=== PATIENT | female | born 1970 | race Caucasian/White ===

== ENCOUNTER 2020-02-04 12:11 | Emergency (ER) | payer BC, SELFPAY ==
[2020-02-04 12:22] VITALS: BP 146/78; PULSE 65; PULSE 66; RESP 22; TEMP 36.8; O2SAT 98; O2SAT 99; BMI 30.8
--- NOTE | 2020-02-04 12:28 | ECG_ITS ---
Test Reason : SOB Blood Pressure : / mmHG Vent. Rate : 062 BPM Atrial Rate : 062 BPM P-R Int : 166 ms QRS Dur : 072 ms QT Int : 396 ms P-R-T Axes : 036 006 008 degrees QTc Int : 401 ms Normal sinus rhythm Low voltage QRS Nonspecific T wave abnormality Abnormal ECG No previous ECGs available Referred By: Eloise Martin Electronically Signed By:KING DUMONT MD
--- NOTE | 2020-02-04 12:28 | XR_ITS ---
EXAMINATION: XR CHEST CLINICAL INFORMATION: Shortness of breath COMPARISON: Previous chest x-ray October 2018 TECHNIQUE: Frontal view of the chest was obtained. FINDINGS: The cardiac and mediastinal contours are stable. The lung volumes are low. There are increased markings at the right lung base questionable for small infiltrate. The lungs are otherwise clear. There is no pleural effusion. Bony structures are unremarkable. XR/XR chest 1V IMPRESSION: Question small infiltrate at the right lung base.
--- NOTE | 2020-02-04 12:32 | ED.SOB ---
HPI - SOB/Dyspnea General Chief Complaint: Dyspnea Stated Complaint: SOB,NO FEVER,NO COUGH Time Seen by Provider: 02/04/20 12:17 Source: patient Mode of arrival: EMS Limitations: no limitations History of Present Illness HPI Narrative: patient comes to emergency room complaining of shortness of breath since yesterday. Patient states she was recently diagnosed with COPD, patient stop smoking a few months ago. Patient took couple of doses of prednisone and Lasix that her PCP prescribed for her ankle swelling. patient denies chest pain, no coughing, no fever. Related Data Previous Rx's Medication Instructions Recorded levofloxacin 500 mg PO DAILY #6 tab 02/04/20 prednisone 50 mg PO DAILY #5 tab 02/04/20 Allergies Allergy/AdvReac Type Severity Reaction Status Date / Time Penicillins [PENICILLINS] Allergy Severe RASH Verified 02/04/20 12:16 Review of Systems Review of Systems: Constitutional : No Weight loss, No Fever, No Chills, No Night Sweats, No Fatigue, No Malaise ENT/Mouth : No Hearing loss, No Ear Pain, No Nasal Congestion, No Sinus Pain, No Hoarseness, No sore throat, No Rhinorrhea, No Swallowing Difficulty Eyes: No Eye Pain, No Swelling, No Redness, No Foreign Body, No Discharge, No Vision Changes Cardiovascular : No Chest Pain, Moderate chest tightness with breathing, moderate SOB, recent episodes of bilateral lower extremity edema Respiratory : No Cough, No Sputum, mild wheezing since yesterday Gastrointestinal : No Nausea, No Vomiting, No Diarrhea, No Constipation, No abdominal Pain, No Hematochezia, No Melena Genitourinary : no irregular bleeding, No Dysuria, No Urinary Frequency, No Hematuria, No Urinary Incontinence, No Urgency, No Flank Pain, No Urinary Flow Changes, No Hesitancy Musculoskeletal : No joint pain, No Myalgias, No Joint Swelling Skin : No Skin Lesions, No rash Neuro : No Weakness, No Numbness, No Paresthesias, No Loss of Consciousness, No Dizziness, No Headache Psych : No Anxiety/Panic, No Depression, No SI/HI/AH/VH, No Social Issues, Heme/Lymph: No Bruising, No Bleeding,No Lymphadenopathy Endocrine : No Polyuria, No Polydipsia, No Temperature Intolerance PMFSH Past Medical History Medical History Anxiety COPD (chronic obstructive pulmonary disease) Surgical History History of appendectomy Social History Social History Alcohol intake: unknown Smoking Status: Former smoker Smoked in Last 30 Days: No Use of substances other than those prescribed or required for medical reasons: No Advance Directives: No Advance Directives Information Provided: No Physical Exam Vital Signs: Vital Signs: Vital Signs Temp Pulse Resp BP Pulse Ox 02/04/20 14:05 55 18 126/62 97 02/04/20 12:22 98.2 F 65 22 H 146/78 H 98 Body Mass Index 30.8 Appearance: Alert. Oriented X3. No acute distress. Eyes: Pupils equal, round and reactive to light. ENT: Pharynx normal. Neck: Normal inspection. Neck supple. No lymph nodes noted. No crepitus CVS: Normal heart rate and rhythm. Pulses normal. Normal S1 and S2 Respiratory: No respiratory distress. Breath sounds normal. No Wheezing. No rales Abdomen: Soft and nontender. No rigidity. No distention. good BS x4 Skin: Skin warm and dry. Normal skin color. Normal skin turgor. Extremities: No lower extremity edema. No lower extremity edema. No Lacerations. No Rash Neuro: Oriented X 3. No motor deficit. No sensory deficit. Moving all extermities. No slurred speech. Course Course Course Narrative: I discussed the labs and imaging with the patient, patient does have a right lower lobe pneumonia, patient's white blood cell count 11.8, patient is on prednisone chronically, likely causing the white blood cell count to be elevated. Patient's troponin negative, rapid COVID test negative. Lactic acid 1.4, at this time sepsis is not suspected patient is calm, oxygen saturation remains at 98% on room air, talking in full sentences. MDM - SOB/Dyspnea Lab Data Result diagrams: 02/04/20 12:45 02/04/20 12:46 Labs: Lab Results 02/04/20 02/04/20 02/04/20 Range/Units 12:45 12:45 12:45 WBC 11.8 H (4.8-10.8) X10*3/uL RBC 4.54 (4.20-5.50) X10*6/uL Hgb 13.1 (12.0-16.0) g/dl Hct 39.5 (37-47) % MCV 87.0 (80-98) fL MCH 28.9 (27.0-33.0) pg MCHC 33.2 (31.0-35.0) g/dl RDW 12.5 (11.0-16.0) % Plt Count 348 (160-400) X10*3/uL MPV 9.3 L (9.4-12.3) fL Immature Gran % (Auto) 0.4 (0.0-0.4) % Neut % (Auto) 89.2 H (45-73) % Lymph % (Auto) 9.1 L (20-40) % Jack % (Auto) 1.1 L (2-11) % Eos % (Auto) 0.0 (0-4) % Baso % (Auto) 0.2 (0-2) % Lymph # (Auto) 1.1 L (1.2-4.9) X10*3/uL Jack # (Auto) 0.1 (0.1-1.2) X10*3/uL Eos # (Auto) 0.0 (0.0-0.4) X10*3/uL Baso # (Auto) 0.0 (0.0-0.2) X10*3/uL Abs Immat Gran (auto) 0.05 H (0.00-0.03) X10*3/uL Absolute Neuts (auto) 10.5 H (2.0-8.3) X10*3/uL Absolute Nucleated RBC 0.000 (0.0-0.012) X10*3/uL Nucleated RBC % (auto) 0.0 (0.0-0.2) /100WBC D-Dimer 246 NG/ML Sodium (135-145) mmol/L Potassium (3.3-5.1) mmol/l Chloride (96-108) mmol/L Carbon Dioxide (22-29) mmol/L Anion Gap (12-20) BUN (9-16) mg/dL Creatinine (0.5-1.4) mg/dL Estim Creat Clear Calc Estimated GFR Random Glucose (60-115) mg/dL Lactic Acid (0.5-2.0) mmol/L Calcium (8.4-10.2) mg/dL Troponin I High Sens < 3.5 (<3.5-17.0) ng/L B-Natriuretic Peptide 50 (<100) pg/mL Coronavirus (PCR) (Negative) 02/04/20 02/04/20 02/04/20 Range/Units 12:46 14:07 14:52 WBC (4.8-10.8) X10*3/uL RBC (4.20-5.50) X10*6/uL Hgb (12.0-16.0) g/dl Hct (37-47) % MCV (80-98) fL MCH (27.0-33.0) pg MCHC (31.0-35.0) g/dl RDW (11.0-16.0) % Plt Count (160-400) X10*3/uL MPV (9.4-12.3) fL Immature Gran % (Auto) (0.0-0.4) % Neut % (Auto) (45-73) % Lymph % (Auto) (20-40) % Jack % (Auto) (2-11) % Eos % (Auto) (0-4) % Baso % (Auto) (0-2) % Lymph # (Auto) (1.2-4.9) X10*3/uL Jack # (Auto) (0.1-1.2) X10*3/uL Eos # (Auto) (0.0-0.4) X10*3/uL Baso # (Auto) (0.0-0.2) X10*3/uL Abs Immat Gran (auto) (0.00-0.03) X10*3/uL Absolute Neuts (auto) (2.0-8.3) X10*3/uL Absolute Nucleated RBC (0.0-0.012) X10*3/uL Nucleated RBC % (auto) (0.0-0.2) /100WBC D-Dimer NG/ML Sodium 136 (135-145) mmol/L Potassium 4.4 (3.3-5.1) mmol/l Chloride 106 (96-108) mmol/L Carbon Dioxide 18 L (22-29) mmol/L Anion Gap 16 (12-20) BUN 17 H (9-16) mg/dL Creatinine 0.69 (0.5-1.4) mg/dL Estim Creat Clear Calc 100.3 Estimated GFR > 60 Random Glucose 129 H (60-115) mg/dL Lactic Acid 1.4 (0.5-2.0) mmol/L Calcium 9.7 (8.4-10.2) mg/dL Troponin I High Sens (<3.5-17.0) ng/L B-Natriuretic Peptide (<100) pg/mL Coronavirus (PCR) NEGATIVE (Negative) ECG Data Attestation: I personally reviewed and interpreted this ECG as follows: ( sinus rhythm, heart rate 62, QTC 401, no ST segment elevations or depressions, nonspecific T-wave inversions in lead 3) Discharge Plan Discharge Clinical Impression: Pneumonia Qualifiers: Pneumonia type: due to unspecified organism Laterality: right Lung location: lower lobe of lung Qualified Code(s): J18.9 - Pneumonia, unspecified organism Patient Disposition: Home, Self-Care Instructions: Community Acquired Pneumonia (ED) Additional Instructions: pneumonia pneumonia if you have any shortness of breath, fever, worsening symptoms, please return to the emergency room. Please follow-up with your primary care physician tomorrow. If you have any worsening or new symptoms, please return to the emergency room or call 911 Prescriptions: New levofloxacin 500 mg tablet 500 mg PO DAILY Qty: 6 RF: 0 prednisone 50 mg tablet 50 mg PO DAILY Qty: 5 RF: 0 Stand Alone Forms: Work/School Release
[2020-02-04 12:52] LABS: MANUAL DIFF FLAG NO
[2020-02-04 12:57] LABS: Basophils Percent Auto 0.2 % (0-2); Hematocrit 39.5 % (37-47); Hemoglobin 13.1 g/dl (12.0-16.0); Imm Gran Abs Auto 0.05 X10*3/uL (0.00-0.03); Imm Gran Pct Auto 0.4 % (0.0-0.4); Lymphocytes Absolute Auto 1.1 X10*3/uL (1.2-4.9); Lymphocytes Percent Auto 9.1 % (20-40); Mean Corpuscular HGB Conc 33.2 g/dl (31.0-35.0); Mean Corpuscular Hemoglobin 28.9 pg (27.0-33.0); Mean Platelet Volume 9.3 fL (9.4-12.3); Monocytes Absolute Auto 0.1 X10*3/uL (0.1-1.2); Monocytes Percent Auto 1.1 % (2-11); Neutrophils Absolute Auto 10.5 X10*3/uL (2.0-8.3); Neutrophils Percent Auto 89.2 % (45-73); Platelet Count 348 X10*3/uL (160-400); Red Blood Count 4.54 X10*6/uL (4.20-5.50); Red Cell Distribution Width 12.5 % (11.0-16.0); White Blood Count 11.8 X10*3/uL (4.8-10.8)
[2020-02-04 13:15] LABS: D Dimer 246 NG/ML
[2020-02-04 13:19] LABS: Anion Gap 16 (12-20); Blood Urea Nitrogen 17 mg/dL (9-16); Calcium 9.7 mg/dL (8.4-10.2); Carbon Dioxide 18 mmol/L (22-29); Chloride 106 mmol/L (96-108); Creatinine Clr Calc Pharmacy 100.3; Estimated Glomerular Filt Rate > 60; Glucose Random 129 mg/dL (60-115); Potassium 4.4 mmol/l (3.3-5.1); Sodium 136 mmol/L (135-145)
[2020-02-04 13:24] LABS: B Type Natriuretic Peptide 50 pg/mL (<100); Troponin-I High Sensitivity < 3.5 ng/L (<3.5-17.0)
[2020-02-04 14:05] VITALS: BP 126/62; PULSE 55; RESP 18; O2SAT 97
[2020-02-04] MEDS: levoFLOXacin 500 MG TABLET PO (14:50)
[2020-02-04 15:14] LABS: SARS COV2 PCR INHOUSE NEGATIVE (Negative)
[2020-02-04 15:20] LABS: Lactic Acid 1.4 mmol/L (0.5-2.0)
== END 2020-02-04 17:00 | disposition home or self-care (01) ==
PROVIDERS: Emergency Provider Emergency Medicine; PCP Internal Medicine
DX: J18.9 Pneumonia, unspecified organism (principal); Z20.828 Contact with and (suspected) exposure to other viral communicable diseases; Z87.891 Personal history of nicotine dependence
CPT/HCPCS: 36415; 71045; 80048; 83605; 83880; 84484; 85025; 85379; 87040; 87635; 93005; 99283; 99284

== ENCOUNTER 2024-07-01 15:11 | Emergency (ER) | payer BC, SELFPAY ==
--- NOTE | ~2024-07-01 | XR_ITS ---
CLINICAL HISTORY: pain 3 views lumbar spine Comparison: None Findings: 4 films were obtained. Straightening of the normal lordosis is either due to muscle spasm or positioning. There is satisfactory alignment of the vertebral bodies. No acute fractures or dislocation. No significant vertebral body compression deformity. There is mild L4-5 and L5-S1 disc space narrowing. There are mild facet degenerative changes. Nonremoved jewelry artifact projects over the right side of L3 and L4. IMPRESSION: No acute findings. Mild degenerative changes. This document has been electronically signed by: Arcelia Browne DO on 07/01/2024 17:08:55
[2024-07-01 15:53] VITALS: BP 120/63; PULSE 68; RESP 18; TEMP 36.7; O2SAT 98; BMI 24.0
--- NOTE | 2024-07-01 15:54 | ED.GENADULT ---
HPI - General Adult General Chief complaint: Back Pain/Injury Stated complaint: severe lower back pain Time Seen by Provider: 07/01/24 22:32 Source: patient Limitations: no limitations History of Present Illness HPI narrative: The patient is a 53-year-old female with past medical history of COPD, HSV, hyperlipidemia who presents emergency department for evaluation of back pain. Reports acute onset at approximately 10:00 this morning right lower back pain radiating down the entirety of her leg posteriorly. She states that onset was while she was walking around at home. She denies any precipitating injury or fall, denies any history of similar pain in the past. Pain has been persistent throughout the day exacerbates with ambulation and movement. She trialed acetaminophen, naproxen, and a Lidoderm patch at home with only minimal improvement. Denies fevers, chills, burning with micturition, urinary frequency/urgency/hesitancy, bladder or bowel dysfunction, numbness or tingling of the perineum or bilateral legs. Denies any recent surgical procedures, any known immune compromising conditions, personal history of cancer, or IV drug usage. Related Data Previous Rx's ?Medication ?Instructions ?Recorded levofloxacin 500 mg tablet 500 mg PO DAILY #6 tabs 02/04/20 prednisone 50 mg tablet 50 mg PO DAILY #5 tabs 02/04/20 cyclobenzaprine 5 mg tablet 5 mg PO TID PRN muscle spasm #14 07/01/24 tabs lidocaine 5 % topical patch 1 patch topical DAILY #15 ea 07/01/24 Allergies Allergy/AdvReac Type Severity Reaction Status Date / Time Penicillins [PENICILLINS] Allergy Severe RASH Verified 07/01/24 15:54 Review of Systems Review of Systems: Yes all other systems are reviewed and are negative PMFSH Past Medical History Attestation statement: The following information was validated with the patient. Source: old records reviewed Medical History COPD (chronic obstructive pulmonary disease) Anxiety Surgical History History of appendectomy Social History Social History Alcohol intake: unknown Advance Directives: No Advance Directives Information Provided: Yes Physical Exam ED Vital Signs: Vital Signs - 24 hr 07/01/24 15:53 Temperature 98.1 F Pulse Rate 68 Respiratory Rate 18 Blood Pressure 120/63 Pulse Oximetry 98 Oxygen Delivery Method Room Air BMI result Body Mass Index 24.0 Appearance: Alert.?Oriented to person, place and time. No acute distress.?Normal affect. Eyes: Pupils equal, round and reactive to light.? ENT: Pharynx normal.?? Neck: Normal inspection.? Neck supple.?? CVS: Heart sounds normal. Normal heart rate and rhythm.? Pulses normal; bilateral radial pulses 2+, bilateral posterior tibial/dorsalis pedis pulses 2+.? Respiratory: No respiratory distress.? Lung sounds clear to auscultation bilaterally?? Abdomen: Soft and non-tender. Normoactive bowel sounds. No pulsatile mass.?? Skin: Skin warm and dry.? Normal skin color.? Normal skin turgor.?? Extremities: No lower extremity edema.? No calf ttp? Back: + mild right paraspinal muscular tenderness from lumbar region to coccyx. No CVA tenderness. No midline spinal tenderness, step-off's, or deformity. Full ROM intact in bilateral lower extremities. Straight leg test positive on right; Straight leg test negative on left. No rashes, lesions, areas of induration or fluctuance, or signs of infection noted., Neuro: Moves all extremities spontaneously. 5/5 strength in hip extension/flexion, abduction, adduction. Sensation to light touch intact bilaterally. Patellar and Achilles reflex 2+ bilaterally. No ataxia, gait normal and steady.. No focal neuro deficits. Course Course Course Narrative: This is a rapid medical exam performed by Dodie Ware PA-C. The patient is a 53-year-old female who presents with the acute onset right-sided low back pain. Pain radiates down the right lower extremity with paresthesias that time. Patient denies urinary retention or bowel incontinence. She is walking with an antalgic gait. We will be screening basic labs obtaining a lumbar film. The patient is stable and can return to the waiting room pending her full medical assessment. Medical Decision Making Medical Decision Making MDM Narrative: patient is a 53-year-old female with past medical history of COPD, HSV, hyperlipidemia who presents emergency department for evaluation of acute onset lower back pain radiating to the right lower extremity as per HPI onset this morning without precipitating injury. On evaluation she has notable right-sided paraspinal lumbar muscle tenderness on palpation palpable spasming. An XR was obtained prior to my assumption of care of the lumbar spine there is no acute fracture subluxation. Serum labs were obtained as well, CBC overall unremarkable, no ARNALDO, unremarkable LFTs. suspect Pain is most consistent with muscular pain, although cannot completely exclude herniated disc however given atraumatic nature of the lower suspicion for such.. On neurological exam there are no deficits. Exam findings not consistent with cauda equina syndrome. No recent fevers, unintentional weight loss, history of IVDA, high-risk past medical history, immunosuppression, recent surgery or lumbar puncture to suggest spinal infection, epidural abscess, malignancy. Not consistent with AAA or dissection. No genitourinary symptoms, afebrile, no CVA tenderness, unlikely urinary tract infection, pyelonephritis, renal colic. No history of nephrolithiasis/ureteral calculi. Plan for discharge home with Discussion of conservative treatment, in addition to a muscle relaxant, and follow-up with primary care provider, and patient agreed with plan. Differential Diagnosis Differential Diagnoses: The differential diagnosis associated with the presentation includes ( see narrative above) Admission/Observation Consideration of admission/observation: Escalation of care including admission/observation considered ( see narrative above) Lab Data MDM Lab Attestation statement: I reviewed the patient's lab results. ( see narrative above) 07/01/24 17:41 07/01/24 17:41 Labs: Lab Results 07/01/24 Range/Units 17:41 WBC 12.8 H (4.8-10.8) X10*3/uL RBC 4.35 (4.20-5.50) X10*6/uL Hgb 13.9 (12.0-16.0) g/dl Hct 41.4 (37.0-47.0) % MCV 95.2 (80.0-98.0) fL MCH 32.0 (27.0-33.0) pg MCHC 33.6 (31.0-35.0) g/dl RDW 12.9 (11.0-16.0) % Plt Count 347 (160-400) X10*3/uL MPV 9.3 L (9.4-12.3) fL Immature Gran % (Auto) 0.5 H (0.0-0.4) % Neut % (Auto) 59.9 (45-73) % Lymph % (Auto) 29.8 (20-40) % Whiteside % (Auto) 5.6 (2-11) % Eos % (Auto) 3.7 (0-4) % Baso % (Auto) 0.5 (0-2) % Lymph # (Auto) 3.8 (1.2-4.9) X10*3/uL Whiteside # (Auto) 0.7 (0.1-1.2) X10*3/uL Eos # (Auto) 0.5 H (0.0-0.4) X10*3/uL Baso # (Auto) 0.1 (0.0-0.2) X10*3/uL Abs Immat Gran (auto) 0.06 H (0.00-0.03) X10*3/uL Absolute Neuts (auto) 7.7 (2.0-8.3) x10*3/uL Absolute Nucleated RBC 0.000 (0.0-0.012) X10*3/uL Nucleated RBC % (auto) 0.0 (0.0-0.2) /100WBC Sodium 139 (135-145) mmol/L Potassium 4.1 (3.3-5.1) mmol/L Chloride 108 (96-108) mmol/L Carbon Dioxide 21 L (22-29) mmol/L Anion Gap 14 (12-20) BUN 18 H (9-16) mg/dL Creatinine 0.74 (0.5-1.4) mg/dL Estim Creat Clear Calc 77.6 Estimated GFR > 60 Random Glucose 90 (60-115) mg/dL Calcium 9.2 (8.4-10.2) mg/dL Magnesium 2.3 (1.6-2.6) mg/dL Total Bilirubin 0.2 (0.0-1.0) mg/dL AST 18 (5-31) U/L ALT 20 (0-31) U/L Alkaline Phosphatase 68 (39-117) U/L Total Protein 7.4 (6.5-8.0) g/dL Albumin 4.3 (3.5-5.0) g/dL Independent Interpretation I performed an independent interpretation of an: Plain X-Ray Radiology Impression Discussion of test interpretation with radiology: I have reviewed the radiologist's reading. Radiologist Impression: XR 3 views lumbar spine Comparison: None Findings: 4 films were obtained. Straightening of the normal lordosis is either due to muscle spasm or positioning. There is satisfactory alignment of the vertebral bodies. No acute fractures or dislocation. No significant vertebral body compression deformity. There is mild L4-5 and L5-S1 disc space narrowing. There are mild facet degenerative changes. Nonremoved jewelry artifact projects over the right side of L3 and L4. IMPRESSION: No acute findings. Mild degenerative changes. Independent Historian Clinical information obtained from an independent historian. History obtained from or confirmed by: Parent Prescription Management I considered prescription management with: Pain Medication Discharge Plan Discharge Clinical Impression: Lumbar radiculopathy Patient Disposition: Home, Self-Care Instructions: Acute Low Back Pain (ED), Lumbar Radiculopathy (ED), Lower Back Exercises (ED) Additional Instructions: as discussed, please rest over the next week with any persistent pain that you may be experiencing. After 1 week you may follow the instructions regarding lower back exercises. Additionally I advised that you follow-up with your primary care doctor for pain that is persisting past this week. You can take ibuprofen 200 mg, 3 tablets (600mg) every 6-8 hours as needed for pain, in addition to Tylenol 500 mg, 2 tablets (1,000mg) every 4-6 hours as needed for pain, but not to exceed 3 doses daily (3,000mg).? You may apply ice/heat for 10-15 minutes 4-6 times daily. Lidoderm patch can be applied to the area of pain on the back, left on for total of 12 hours and remove for a 12 hour period to prevent any skin irritation. For pain not alleviated by the above I have sent a prescription for muscle relaxant to your pharmacy cyclobenzaprine/Flexeril. This medication may make you drowsy. You should not drive, drink alcohol, or work while taking this medication. Prescriptions: New cyclobenzaprine 5 mg tablet 5 mg PO TID PRN (Reason: muscle spasm) Qty: 14 0RF lidocaine 5 % adhesive patch,medicated 1 patch topical DAILY Qty: 15 0RF Rx Instructions: leave on most painful area for up to 12 hrs No Action levofloxacin 500 mg tablet 500 mg PO DAILY Qty: 6 0RF prednisone 50 mg tablet 50 mg PO DAILY Qty: 5 0RF Referrals: Cesar Humphreys MD [Primary Care Provider] - Print Language: [place]
[2024-07-01 17:45] LABS: MANUAL DIFF FLAG NO
[2024-07-01 18:04] LABS: Alanine Aminotransferase 20 U/L (0-31); Albumin Level 4.3 g/dL (3.5-5.0); Alkaline Phosphatase 68 U/L (39-117); Anion Gap 14 (12-20); Aspartate Amino Transferase 18 U/L (5-31); Bilirubin Total 0.2 mg/dL (0.0-1.0); Blood Urea Nitrogen 18 mg/dL (9-16); Calcium 9.2 mg/dL (8.4-10.2); Carbon Dioxide 21 mmol/L (22-29); Chloride 108 mmol/L (96-108); Creatinine Clr Calc Pharmacy 77.6; Estimated Glomerular Filt Rate > 60; Glucose Random 90 mg/dL (60-115); Magnesium 2.3 mg/dL (1.6-2.6); Potassium 4.1 mmol/L (3.3-5.1); Sodium 139 mmol/L (135-145); Total Protein 7.4 g/dL (6.5-8.0)
[2024-07-01 18:07] LABS: Basophils Absolute Auto 0.1 X10*3/uL (0.0-0.2); Basophils Percent Auto 0.5 % (0-2); Eosinophils Absolute Auto 0.5 X10*3/uL (0.0-0.4); Eosinophils Percent Auto 3.7 % (0-4); Hematocrit 41.4 % (37.0-47.0); Hemoglobin 13.9 g/dl (12.0-16.0); Imm Gran Abs Auto 0.06 X10*3/uL (0.00-0.03); Imm Gran Pct Auto 0.5 % (0.0-0.4); Lymphocytes Absolute Auto 3.8 X10*3/uL (1.2-4.9); Lymphocytes Percent Auto 29.8 % (20-40); Mean Corpuscular HGB Conc 33.6 g/dl (31.0-35.0); Mean Corpuscular Volume 95.2 fL (80.0-98.0); Mean Platelet Volume 9.3 fL (9.4-12.3); Monocytes Absolute Auto 0.7 X10*3/uL (0.1-1.2); Monocytes Percent Auto 5.6 % (2-11); Neutrophils Absolute Auto 7.7 x10*3/uL (2.0-8.3); Neutrophils Percent Auto 59.9 % (45-73); Platelet Count 347 X10*3/uL (160-400); Red Blood Count 4.35 X10*6/uL (4.20-5.50); Red Cell Distribution Width 12.9 % (11.0-16.0); White Blood Count 12.8 X10*3/uL (4.8-10.8)
[2024-07-01] MEDS: Cyclobenzaprine HCl 5 MG TABLET PO (23:10)
[2024-07-01 23:12] VITALS: BP 120/63; PULSE 68; RESP 18; TEMP 36.7; O2SAT 98
== END 2024-07-01 23:13 | disposition home or self-care (01) ==
PROVIDERS: Physician Assistant Medical; Emergency Provider Emergency Medicine; PCP Internal Medicine
DX: M54.16 Radiculopathy, lumbar region (principal); M54.50 Low back pain, unspecified; J44.9 Chronic obstructive pulmonary disease, unspecified; M79.605 Pain in left leg; M79.604 Pain in right leg
CPT/HCPCS: 36415; 72100; 80053; 83735; 85025; 99283

== ENCOUNTER → 2024-07-01 15:53 | Outpatient (BNV) | payer BC, SELFPAY | PROVIDERS: PCP Internal Medicine; Visit Provider Radiology Diagnostic Radiology | DX: M54.50 Low back pain, unspecified (principal) | CPT/HCPCS: 72100 ==

== ENCOUNTER → 2024-09-24 13:16 | Outpatient (BNVA) | payer SELFPAY | PROVIDERS: PCP Internal Medicine | DX: Z11.1 Encounter for screening for respiratory tuberculosis (principal) ==

== ENCOUNTER 2025-02-18 16:27 | Emergency (ER) | payer MEDICAID, SELFPAY ==
--- NOTE | ~2025-02-18 | XR_ITS ---
CLINICAL HISTORY: pain, swelling 5th toe 3 view right foot Comparison: None provided Findings: Bones intact. No dislocations. No significant loss of joint space, osteophytes, or erosions. No ankle effusion. No radiopaque foreign body. IMPRESSION: 1. No acute findings. This document has been electronically signed by: Erick Tomas MD on 02/18/2025 18:23:31
[2025-02-18 16:41] VITALS: BP 125/63; PULSE 74; RESP 18; TEMP 36.4; O2SAT 97; BMI 22.7
--- NOTE | 2025-02-18 16:41 | ED.GENADULT ---
HPI - General Adult General Chief complaint: Extremity Injury, Lower Stated complaint: Swelling Of Limb Time Seen by Provider: 02/18/25 18:31 Source: patient, RN notes reviewed and old records reviewed Mode of arrival: ambulatory Limitations: no limitations History of Present Illness ED Provider: Carm[facility] narrative: Patient is a 54year old female presenting to the ED with complaint of pain, redness and swelling to R 5th toe. Can't recall any traumatic injury but is unsure. Recently got new shoes for work and has been wearing compression socks. MD complaint: toe pain Onset (ago): day(s) Related Data Previous Rx's ?Medication ?Instructions ?Recorded levofloxacin 500 mg tablet 500 mg PO DAILY #6 tabs 02/04/20 prednisone 50 mg tablet 50 mg PO DAILY #5 tabs 02/04/20 cyclobenzaprine 5 mg tablet 5 mg PO TID PRN muscle spasm #14 07/01/24 tabs lidocaine 5 % topical patch 1 patch topical DAILY #15 ea 07/01/24 doxycycline hyclate 100 mg capsule 100 mg PO BID #14 caps 02/18/25 Allergies Allergy/AdvReac Type Severity Reaction Status Date / Time Penicillins (PENICILLINS) Allergy Severe RASH Verified 07/01/24 15:54 tramadol Allergy Shortness Verified 02/18/25 16:45 of Breath Review of Systems Review of Systems: as per hpi Yes all other systems are reviewed and are negative Constitutional: Constitutional: Reports as per HPI [facility] Past Medical History Medical History COPD (chronic obstructive pulmonary disease) Anxiety Surgical History History of appendectomy Social History Social History Alcohol intake: unknown Physical Exam ED Vital Signs: Vital Signs - 24 hr 02/18/25 16:41 Temperature 97.5 F Pulse Rate 74 Respiratory Rate 18 Blood Pressure 125/63 Pulse Oximetry 97 Oxygen Delivery Method Room Air BMI result Body Mass Index 22.7 Vital signs have been reviewed and appear to be correct. Blood pressure normal. Heart rate normal. Respiratory rate normal. Temperature normal. Oxygen saturation normal. Const General: cooperative, healthy appearing and no acute distress Orientation/consciousness: oriented to person, oriented to place, oriented to time and patient oriented x3 Limitations: no limitations HENMT Head: Yes normocephalic and Yes atraumatic Ears: external ears normal General nose exam: Normal external nose present Face and sinus: Yes face symmetric Mouth: oropharynx normal and moist mucous membranes Throat: Yes uvula midline Eyes Pupils: Equal, round and reactive pupils present Neck Neck: Yes normal visual inspection and Yes supple Resp Effort & Inspection: normal respiratory effort and able to speak in complete sentences Auscultation: clear to auscultation bilaterally Cardio Rate: regular rate Rhythm: regular rhythm Heart sounds: S1 normal heart sound present and S2 normal heart sound present GI Palpation (GI): Soft to palpation and nontender Auscultation: normoactive bowel sounds General: Yes no CVA tenderness Back/Spine/Pelvis Back: no CVA tenderness Skin General skin exam: elasticity normal and turgor normal Neuro General: oriented to person, oriented to place, oriented to time, patient oriented x3, moves all extremities, no focal motor deficits and CN's II-XI intact bilaterally Cranial nerves: Yes Equal, round and reactive pupils present Cognition (Neuro): normal cognition Extrem General: Yes full ROM, Yes no pedal edema and Yes no calf tenderness Right lower extremity: foot Details: normal capillary refill, tenderness Location: of another digit Location: the 5th digit, toes with normal ROM, warmth Location: of another digit Location: the 5th digit, no edema, vascular exam Details: dorsalis pedis pulse present, posterior tibial pulse present and normal capillary refill and other (entire 5th toe erythematous) Psych Mental Status: mental status grossly normal Affect: normal affect Thought process: Normal thought process present Course Course Course Narrative: This is a rapid medical exam performed by Rebecca Herr NP: Additional HPI, ROS, PE not included below will be deferred to primary provider. Patient is a 54y/o F presenting to the ED with complaint of pain, redness and swelling to R 5th toe. Can't recall any traumatic injury but is unsure. Plan: xray Medical Decision Making Medical Decision Making [facility] Narrative: Patient is a 54y/o F presenting to the ED with complaint of pain, redness and swelling to R 5th toe. On exam patient is awake, A+Ox3, VS WNL, afebrile, normal neurological exam without focal deficits, physical exam findings as above. Given reported symptoms and physical exam findings, initial differential includes but is not limited to cellulitis, fracture. Do not suspect vascular compromise as sensation intact, cap refill <3 seconds. X-ray right foot notable for no acute fracture. My interpretation is in agreement with the radiologist's interpretation. Results discussed with patient and all questions answered. Will cover with doxycycline as patient has pcn allergy. Return precautions discussed. Advised patient to try different shoes/socks until symptoms resolve. Patient verbalized understanding of and agreement with plan. Differential Diagnosis Differential Diagnoses: The differential diagnosis associated with the presentation includes as per [facility] Admission/Observation Consideration of admission/observation: Escalation of care including admission/observation considered Patient would have been admitted to the hospital and transferred to appropriate facility had their clinical presentation warranted hospital admission. Independent Interpretation I performed an independent interpretation of an: Plain X-Ray Interpretation: No acute fracture right 5th toe Radiology Impression Discussion of test interpretation with radiology: I have reviewed the radiologist's reading. Radiologist Impression: 3 view right foot Comparison: None provided Findings: Bones intact. No dislocations. No significant loss of joint space, osteophytes, or erosions. No ankle effusion. No radiopaque foreign body. IMPRESSION: 1. No acute findings. External Record Review External record reviewed: Inpatient record, Office record and Outpatient record Prescription Management I considered prescription management with: Antibiotic Discharge Plan Discharge Clinical Impression: Cellulitis of fifth toe of right foot Patient Disposition: Home, Self-Care Instructions: Cellulitis (ED) Additional Instructions: You have been evaluated in the emergency department today for skin infection, also known as cellulitis. If the area of inflammation was outlined today in the ER, please return to the ER immediately if the area of redness increases beyond the border. Please take your prescribed antibiotics as directed for the full course of the medication. You can use Tylenol or ibuprofen per package instructions every 6 hours as needed for pain. If necessary, you can alternate these medications so that you can take one medication every 3 hours. For instance, at noon take ibuprofen, then at 3:00 p.m. take Tylenol, then at 6:00 p.m. take ibuprofen. Please schedule an appointment for follow-up with your primary care physician as soon as possible. Return to the emergency department if you experience recurrent vomiting, fevers greater than 100.4? F, increasing area of redness, warmth around the area, foul-smelling discharge from the area, increased tenderness around the area, or any other concerning symptoms. Prescriptions: New doxycycline hyclate 100 mg capsule 100 mg PO BID Qty: 14 0RF No Action levofloxacin 500 mg tablet 500 mg PO DAILY Qty: 6 0RF prednisone 50 mg tablet 50 mg PO DAILY Qty: 5 0RF cyclobenzaprine 5 mg tablet 5 mg PO TID PRN (Reason: muscle spasm) Qty: 14 0RF lidocaine 5 % adhesive patch,medicated 1 patch topical DAILY Qty: 15 0RF Rx Instructions: leave on most painful area for up to 12 hrs Print Language: [place]
[2025-02-18 18:54] VITALS: BP 125/63; PULSE 74; RESP 18; TEMP 36.4; O2SAT 97
--- OUTSIDE RECORDS SUMMARY | 2025-02-18 18:54 | XMS_ITS | Clinical Summary ---
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 Active atorvastatin (LIPITOR) 10 MG tablet Take 10 mg by mouth daily. 2 Active buPROPion (WELLBUTRIN) 100 MG immediate release tablet Take 100 mg by mouth 2 (two) times a day. Active escitalopram oxalate (LEXAPRO) 10 MG tablet Take 1 tablet by mouth daily. 1 Active lidocaine 5 % ointment APPLY TOPICALLY TO THE AFFECTED AREA THREE TIMES DAILY 2 Active polyethylene glycol (GOLYTELY) 236-22.74-6.74 -5.86 gram solution MIX POWDER WITH WATER DIRECTED ON PACKAGE FOLLOW [facility] IN[facility]ET STATING WHEN TO DRINK THE PREP ON EVENING BEFORE 8OZ EVERY 20 MINS 2 Active tiotropium bromide (SPIRIVA RESPIMAT) 2.5 mcg/actuation mist for inhalation INHALE 2 PUFFS BY MOUTH EVERY DAY 1 Active valACYclovir (VALTREX) 1000 MG tablet Take 1,000 mg by mouth daily. 2 Active ibuprofen (ADVIL,MOTRIN) 600 MG tablet Take 1 tablet (600 mg total) by mouth 3 (three) times a day for 3 days. Then tid prn pain/inflammatio n 30 tablet 2 Active Active Problems No known active problems Social History Tobacco Use Types Packs/Day Years Used Date Smoking Tobacco: Never Assessed Education Answer Date Recorded Are you interested in more education? Not on samia e 08/05/2022 Are you concerned about learning? Not on file 08/05/2022 No 08/05/2022 No 08/05/2022 Digital Access Answer Date Recorded No 09/03/2022 No 09/03/2022 Reliable internet access at home? Not on file 09/03/2022 Device with a working camera? Not on file Comments Unknown Sex and Gender Information Value Date Recorded Sex Assigned at Not on file Legal Sex Female 5:02 PM EDT Gender Identity Not on file Sexual Orientation Not on file Last Filed Vital Signs Vital Sign Reading Time Taken Comments Blood Pressure 138/80 11/26/2021 12:15 PM EDT Pulse 66 11/26/2021 12:15 PM EDT Temperature 36.6 C (97.9 F) 11/26/2021 12:15 PM EDT Respiratory Rate 18 11/26/2021 12:15 PM EDT Oxygen Saturation 99% 11/26/2021 12:15 PM EDT Inhaled Oxygen Concentration - - Weight - - Height - - Body Mass Index - - Plan of Treatment Health Maintenance Due Date Last Done Comments Adult Td,Tdap Booster 1972 LIPID PANEL 1972 DEPRESSION SCREENING 1984 SMOKING Hx and SMOKELESS TOB ACCO SCREENING 1985 HEPATITIS C SCREENING 1990 HIV ONE-TIME SCREENING (18-6 5 YEARS) 1990 PAP SMEAR 1993 MAMMOGRAM 2012 COLOGUARD 2017 COLONOSCOPY 2017 COLORECTAL CANCER SCREENING 2017 FIT TEST 2017 FOBT 2017 SIGMOIDOSCOPY 2017 VIRTUAL COLONOSCOPY 2017 PNEUMOCOCCAL VACCINES (50+ y ears) (1 of 1 - PCV) 2022 ZOSTER VACCINES (1 of 2) 2022 INFLUENZA VACCINE (#1) 2024 COVID-19 VACCINE (1 - 2024-2 6 season) 2024 RSV VACCINE (1 - 1-dose 75+ series) 08/24/2047 HEPATITIS A VACCINES Aged Out No long er eligible based on patient's age to complete this topic HIB VACCINES Aged Out No longer eligi ble based on patient's age to complete this topic MENINGOCOCCAL VACCINES (ACWY) Aged Out No longer eligible based on patient's age to complete this topic MENINGOCOCCAL VACCINES (B) Aged Out N o longer eligible based on patient's age to complete this topic Medical Devices Not on file Insurance [facility] PPO 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 It is not the complete legal health record.[facility]
--- OUTSIDE RECORDS SUMMARY | 2025-02-18 18:54 | XMS_ITS | Data Portability ---
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 Plan of Treatment Reminders Order Date Submit Date Provider Last Modified By Organization Details Last Modified Time Details Appointments None record ed. Lab None record ed. Referral None record ed. Procedures None record ed. Surgeries None record ed. Imaging None record ed. Medication Orders None record ed. Patient TargetsNo targets recorded. Patient InstructionsNo instructions recorded. Reason for Referral None Reported. 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; Note: Date Diagnosed: 04/04/2019 9:36 AM (J38.1) Not Available [facility] 4 02:40:36 Dysphonia 61140741 Active 2018 Hoarseness ; Note: Date Diagnosed: 04/04/2019 9:33 AM (R49.0) Not Available [facility] 4 02:40:33 Gastroeso phageal reflux disease without esophagit is 453714749 Active 2018 Gastro-eso phageal reflux disease without esophagiti s; Note: Date Diagnosed: 04/04/2019 9:41 AM (K21.9) Not Available [facility] 4 02:40:29 Dysphagia 23859849 Active 2018 Other dysphagia; Note: Date Diagnosed: 04/04/2019 9:42 AM (R13.19) Not Available [facility] 4 02:40:32 Chronic obstructi ve pulmonary disease 13393110 Active 2018 Chronic obstructiv e pulmonary disease, unspecifie d; Note: Date Diagnosed: 04/04/2019 9:33 AM (J44.9) Not Available [facility] 4 02:40:31 Chronic pharyngit is 600049 Active 2019 Chronic sore throat; Note: Date Diagnosed: 08/13/2019 10:17 AM (J31.2) Not Available [facility] 4 02:40:34 Problem Notes None recorded. Procedures Surgical History Date Name Laterality Status Provider Name and Address Organization Details Recorded Time 06/26/19 25 Fiberoptic Laryngoscopy (Comprehensive) completed PHILIP DANIELS MD [address] [place] [address],[address], [address], [facility] 06/25/2024 10:41:34 03/26/20 24 Fiberoptic Laryngoscopy (Comprehensive) completed PHILIP DANIELS MD [address] [place] [address],[place] [address], [place], [address], [facility] 03/27/2024 11:53:44 Imaging Results None recorded. Procedure Notes None recorded. Medical Equipment None Reported. Allergies Allergen ID Allergen Name Allergen Category Reaction Reaction Severity Criticality Documentation Date Start Date Code Code System Note Provider Name and Address Organization Details Recorded Time 791555 Product containin g penicilli n (product) medicatio n other Not available Not available 08/22/2023 65001 8001 SNOMED React ion: unkno wn, unspe cifie d;; Not Available [facility] 4 01:14:08 Medications Name Sig Start Date Stop Date Status Note LastModified by Organization Details LastModified Time bupropion HCl SR 150 mg tablet,12 hr sustained -release 03/26 completed Medicati on ID: [id number] D uration Value: 30 Brand Name: bupropio n HCl Send Method: E-Prescr ibed Sub s Allowed: subs OK Speci al Instruct ion: TK 1 T PO BID Medi cationGe nericNam e: bupropio n HCl Not Available Not Available Not Available ipratropi um 0.5 mg-albute rol 3 mg (2.5 mg base)/3 mL nebulizat ion soln 03/26 completed Medicati on ID: [id number] D uration Value: 15 Brand Name: ipratrop ium-albu terol Se nd Method: E-Prescr ibed Sub s Allowed: subs OLU Albertsi al Instruct ion: U 3 ML VIA NEB QID PRF WHZ OR SOB PRF WHZ / SOB Medi cationGe nericNam e: ipratrop ium-albu terol Not Available Not Available Not Available albuterol sulfate 2.5 mg/3 mL (0.083 %) solution for nebulizat ion INHALE 3ML EVERY 6 HOURS NEEDED FOR WHEEZING /SHORTNE SS OF BREATH active Not Available Not Available No t Available atorvasta tin 10 mg tablet TAKE 1 TABLET BY MOUTH DAILY active Not Available Not Available No t Available azithromy sara 250 mg tablet TAKE 2 TABLETS BY MOUTH TODAY, THEN TAKE 1 TABLET DAILY FOR 4 DAYS DIRECTED 06/25 completed Not Available Not Available Not Available ibuprofen 800 mg tablet 03/26 completed Medicati on ID: [id number] D uration Value: 30 Brand Name: ibuprofe n Send Method: E-Prescr ibed Sub s Allowed: subs OLU Ellis al Instruct ion: TK 1 T PO TID PRF PAIN Med icationG enericNa me: ibuprofe n Not Available Not Available Not Available nicotine (polacril ex) 2 mg gum 03/26 completed Medicati on ID: [id number] D uration Value: 28 Brand Name: nicotine (polacri irina) Sen d Method: E-Prescr ibed Sub s Allowed: subs OLU Ellis al Instruct ion: CHEW 1 PIECE OF GUM Q 2 HOURS PRF SMOKING CESSATIO N FOR 4 WEEKS. UTD O N PACKAGE LABELING Medicat ionGener icName: nicotine (polacri irina) Not Available Not Available Not Available valacyclo vir 1 gram tablet TAKE 1 TABLET BY MOUTH DAILY active Not Available Not Available No t Available prednison e 20 mg tablet TAKE 1 TABLET BY MOUTH EVERY DAY FOR 5 DAYS 06/25 completed Not Available Not Available Not Available Nicotrol 10 mg inhalatio n cartridge 03/26 completed Medicati on ID: [id number] D uration Value: 30 Brand Name: Nicotrol Send Method: E-Prescr ibed Sub s Allowed: subs OK Medic ationGen ericName : Nicotrol Not Available Not Available Not Available tramadol 50 mg tablet TAKE 1 TABLET BY MOUTH EVERY 12 HOURS NEEDED FOR PAIN active Not Available Not Available No t Available famotidin e 20 mg tablet Take 1 tablet by mouth twice a day 03/26 completed Medicati on ID: [id number] Ratna spencer By Name: Hussain mckinney MD Brand Name: famotidi ne Send Method: E-Prescr ibed Sub s Allowed: subs OK Medic ationGen ericName : famotidi ne Not Available Not Available Not Available omeprazol e 20 mg capsule,d elayed release 1 capsule by mouth 03/26 completed Medicati on ID: [id number] D uration Value: 30 Brand Name: omeprazo le Send Method: E-Prescr ibed Sub s Allowed: subs OK Medic ationGen ericName : omeprazo le Not Available Not Available Not Available lorazepam 1 mg tablet 03/26 completed Medicati on ID: [id number] D uration Value: 3 Brand Name: lorazepa m Send Method: E-Prescr ibed Sub s Allowed: subs OK Speci al Instruct ion: TK 1 T PO TID FOR 3 DAYS PRN FOR ANXIETY Medicati onGeneri cName: lorazepa m Not Available Not Available Not Available ibuprofen 600 mg tablet 03/26 completed Medicati on ID: [id number] D uration Value: 10 Brand Name: ibuprofe n Send Method: E-Prescr ibed Sub s Allowed: subs OK Speci al Instruct ion: TK 1 T PO TID FOR 10 DAYS Med icationG enericNa me: ibuprofe n Not Available Not Available Not Available albuterol sulfate HFA 90 mcg/actua tion aerosol inhaler INHALE 2 PUFFS BY MOUTH EVERY 6 HOURS active Not Available Not Available No t Available escitalop oscar 10 mg tablet 03/26 completed Medicati on ID: [id number] D uration Value: 30 Brand Name: escitalo pram oxalate Send Method: E-Prescr ibed Sub s Allowed: subs OK Speci al Instruct ion: TK 1 T PO D Medica tionGene ricName: escitalo pram oxalate Not Available Not Available Not Available cyclobenz aprine 5 mg tablet TAKE 1 TABLET BY MOUTH THREE TIMES DAILY NEEDED FOR MUSCLE SPASM active Not Available Not Available No t Available escitalop oscar 5 mg tablet 03/26 completed Medicati on ID: [id number] D uration Value: 30 Brand Name: escitalo pram oxalate Send Method: E-Prescr ibed Sub s Allowed: subs OK Speci al Instruct ion: TK 1 T PO QD Medic ationGen ericName : escitalo pram oxalate Not Available Not Available Not Available Symbicort 160 mcg-4.5 mcg/actua tion HFA aerosol inhaler 03/26 completed Medicati on ID: [id number] D uration Value: 30 Brand Name: Symbicor t Send Method: E-Prescr ibed Sub s Allowed: subs OK Medic ationGen ericName : Symbicor t Not Available Not Available Not Available Symbicort 80 mcg-4.5 mcg/actua tion HFA aerosol inhaler 03/26 completed Medicati on ID: [id number] D uration Value: 30 Brand Name: Symbicor t Send Method: E-Prescr ibed Sub s Allowed: subs OK Medic ationGen ericName : Symbicor t Not Available Not Available Not Available ProChambe r 2018 active Medicati on ID: [id number] D uration Value: 1 Brand Name: ProChamb er Send Method: E-Prescr ibed Sub s Allowed: subs OK Speci al Instruct ion: USE DIRECTED WITH INHALER Medicati onGeneri cName: ProChamb er Not Available Not Available Not Available Spiriva Respimat 2.5 mcg/actua tion solution for inhalatio n INHALE 2 PUFFS BY MOUTH DAILY J 44.9 active Not Available Not Available No t Available Vitals Date Recorded Body height Body mass index (BMI) Body weight Provider Name and Address Organization Details Last Updated DateTime 06/25/2024 162.56 cm 24 kg/m2 03029.93 g Emi Potvin [place] - [facility] 06/25/2024 10:16:50 Date Recorded Body height Body mass index (BMI) Body weight Provider Name and Address Organization Details Last Updated DateTime 03/26/2024 162.56 cm 23.7 kg/m2 88737.75 g Emi Lisa [place] - [facility] 03/26/2024 14:42:16 Social History None recorded. Functional Status None recorded. Mental Status None recorded. Family History Nothing Reported Notes:Problems with anesthes ia: Father. Cancer:. Pertinent negatives: lung cancer, thyroid cancer, unknown type of cancer. Ears: Hearing loss after age 20 - father. Hearing loss before age 20 - father. Cardiovascular: Hypertension - father. Pertinent negatives: heart disease. Respiratory:. Pertinent negatives: asthma. Neurologic:. Pertinent negatives: stroke. Endocrine: Diabetes, age at onset unspecified - father. Hematologic/Lymphatic:. Pertinent negatives: bleeding or blood clotting problems. Medical History Condition Response COPD Y Gynecological HistoryNo gynecological history recorded. Obstetrics History GPAL:G 0 P 0 0 0 0 Past Encounters Encounter ID Performer Location Encounter Start Date Encounter Closed Date Diagnosis/Indication Diagnosis SNOMED-CT Code Diagnosis ICD10 Code Diagnosis IMO Codes Diagnosis Note [id number] PHILIP DANIELS MD [facility] on [address] [place] [id number] 03/26/2024 14:20:51 03/26/2024 15:31:51 Polyp of vocal cord or larynx 645898457 J38.1 53-year-ol d female, former smoker, presents today for evaluation of hoarseness . She was previously seen in the office about 3 years ago and had testing including laryngosco py showing some vocal cord edema, most prominent in the left mid cord. Exam today shows a left mid cord polyp. There is no ulcerative or friable lesion. We reviewed voice hygiene in detail. Will monitor for stability in about 3 months. We discussed [place]. [id number] PHILIP DANIELS MD [facility] on [address] [place] [id number] 06/25/2024 10:12:32 06/25/2024 10:48:24 Polyp of vocal cord or larynx 102095736 J38.1 53-year-ol d female, former smoker, presents today for evaluation of hoarseness , symptoms improved after recent COPD exacerbati on. Exam today shows a left mid cord polyp. There is no ulcerative or friable lesion. We reviewed voice hygiene in detail. Will reassess in 6 months, but overall appears stable. Chronic ob structive pulmonary disease 68186233 J44.9 Health Concerns Section Related Observation LastModified by Organization Detai ls LastModified Time None Recorded Concern Status LastModified by Organization Details LastModified Time None Recorded Advance Directives Directive None Recorded Payers Insurance Date Sequence Insurance Name Policy Number Policy Hammonds Covered Member ID Hammonds Member ID Guarantor Name 02/10/2025 1 [facility] ([facility]) [id number] Janice Foster [id number] Janice Foster Notes Date Note Type Note Provider Name and Address Organization Details Recorded Time 03/26/2024 text/html Voice improved after her last visit, but then worsened. 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 PV: Ms. Foster is a 50 year old female, former smoker with a history of COPD managed with Symbicort, Spiriva, and albuterol, who presents withhoarseness.She has noted improved voice since quitting smoking. She denies dysphagia. Strobe 04/2019:Laryngeal Stroboscopy [[id number]].Vocal Fold Edge: Left side - Prominence(s) evident - at the midmembranous portion.Glottic Closure: posterior gap.Mobility: Normal, bilaterally.Mucosal Wave: B wave noted as present but unable to full assess wave function due to persistent mucous fogging and pt poor tolerance of nasoendoscopy.Vibra tory behavior: Always fully present bilaterally.Supragl ottic Activity (L-M) - mild / moderate.Supraglott ic Activity (A-P) - mild / moderate.Secretions : increased in amount and which did not clear.Other findings: Pt with poor tolerance of nasoendoscopy. Heavy mucous throughout the laryngeal area unable to clear despite all attempts limited clear views of laryngeal tissues. PHILIP DANIELS MD [address] [place] [address], [place], [address], [place] - [facility] 03/27/2024 11:55:03 06/25/2024 text/html COPD exacerbation a couple weeks ago after prednisone and abxJust saw boatswain's mate, lungs seemed in good shapeMore cough lately Lots of water PV: Ms. Foster is a 50 year old female, former smoker with a history of COPD managed with Symbicort, Spiriva, and albuterol, who presents withhoarseness.She has noted improved voice since quitting smoking. She denies dysphagia. Strobe 04/2019:Laryngeal Stroboscopy [[id number]].Vocal Fold Edge: Left side - Prominence(s) evident - at the midmembranous portion.Glottic Closure: posterior gap.Mobility: Normal, bilaterally.Mucosal Wave: B wave noted as present but unable to full assess wave function due to persistent mucous fogging and pt poor tolerance of nasoendoscopy.Vibra tory behavior: Always fully present bilaterally.Supragl ottic Activity (L-M) - mild / moderate.Supraglott ic Activity (A-P) - mild / moderate.Secretions : increased in amount and which did not clear.Other findings: Pt with poor tolerance of nasoendoscopy. Heavy mucous throughout the laryngeal area unable to clear despite all attempts limited clear views of laryngeal tissues. PHILIP DANIELS MD [address] [place] [address], [place], [phone], [place] - [facility] 06/27/2024 08:17:15 OBGyn Episode No OBEpisode recorded.
== END 2025-02-18 18:55 | disposition home or self-care (01) ==
PROVIDERS: Emergency Provider Emergency Medicine; PCP Internal Medicine
DX: L03.032 Cellulitis of left toe (principal); R60.0 Localized edema; M79.675 Pain in left toe(s); J44.9 Chronic obstructive pulmonary disease, unspecified; F41.9 Anxiety disorder, unspecified
CPT/HCPCS: 73630; 99282; 99283

== ENCOUNTER → 2025-02-18 16:43 | Outpatient (BNV) | payer MEDICAID, SELFPAY | PROVIDERS: Emergency Provider Emergency Medicine; PCP Internal Medicine; Visit Provider Radiology Diagnostic Radiology | DX: M79.674 Pain in right toe(s) (principal); R22.41 Localized swelling, mass and lump, right lower limb | CPT/HCPCS: 73630 ==